=== PATIENT | male | born 1935 | race Caucasian/White ===

== ENCOUNTER 2021-08-15 13:58 | Observation (INO) | payer OTHER ==
[2021-08-15] MEDS ORDERED: Labetalol HCl 100 MG/20 ML VIAL ONE (14:22)
[2021-08-15 14:33] LABS: #Basophils 0.1 10x3/uL (0.0-0.2); #Eosinphils 0.2 10x3/uL (0.0-0.5); #Monocytes 0.6 10x3/uL (0.0-1.1); #Neutrophils 5.3 10x3/uL (1.5-8.4); %Basophils 0.8 % (0.0-2.0); %Eosinophils 2.6 % (0.0-6.0); %Lymphocytes 14.9 % (18.0-47.0); %Monocytes 8.4 % (0.0-10.0); Hemoglobin 14.6 g/dL (13.5-17.5); Mean Corpuscular HGB CONC 32.9 g/dL (32.0-36.0); Mean Corpuscular Hemoglobin 30.9 pg (27.0-33.0); Mean Corpuscular Volume 94.1 fl (81.2-95.1); Mean Platelet Volume 10.7 fl (7.4-10.4); Platelet Count 152 10x3/uL (150-450); RBC Distribution Width 12.7 % (11.5-14.5); Red Blood Cell (RBC) Count 4.72 10x6/uL (4.32-5.72); White Blood Cell (WBC) Count 7.2 10x3/uL (3.5-10.5)
[2021-08-15] MEDS ORDERED: hydrALAZINE 20 MG/ML VIAL ONE (14:39)
[2021-08-15 14:47] LABS: ALT (SGPT) 11 U/L (8-55); AST (SGOT) 18 U/L (5-34); Albumin 4.3 g/dL (3.4-4.8); Alkaline Phosphatase 135 U/L (40-110); Anion Gap 17 mmol/L (10-20); BUN (Urea Nitrogen) 31 mg/dL (8.4-25.7); Bilirubin, Total 0.7 mg/dL (0.2-1.2); Calc. Creatinine Clearance 0 mL/min (70-130); Carbon Dioxide 24 mmol/L (23-31); Chloride 103 mmol/L (98-107); Glucose 93 mg/dL (83-110); Lipase 27 U/L (8-78); Potassium 4.6 mmol/L (3.5-5.1); Protein, Total 7.3 g/dL (5.8-8.1); Sodium 139 mmol/L (136-145)
[2021-08-15] MEDS ORDERED: Aspirin Chewable 81 MG TAB ONE (15:15)
[2021-08-15] MEDS ORDERED: Nitroglycerin 2% Ointment 1 INCH/1 GM Packet ONE (22:30)
[2021-08-15 23:08] LABS: Troponin I 0.025 ng/mL (< 0.028)
[2021-08-15 23:36] VITALS: BMI 22.2
[2021-08-15 23:53] LABS: SARS-CoV-2 NAA Rapid Test Not Detected (NotDetected)
[2021-08-16] MEDS ORDERED: Nitroglycerin 0.4 MG TAB (25 Tab Bottle) SL PRN (01:51)
[2021-08-16] MEDS ORDERED: Acetaminophen 325 MG TAB PO PRN (01:57)
[2021-08-16 05:23] LABS: #Basophils 0.1 10x3/uL (0.0-0.2); #Eosinphils 0.2 10x3/uL (0.0-0.5); #Monocytes 0.6 10x3/uL (0.0-1.1); #Neutrophils 5.7 10x3/uL (1.5-8.4); %Basophils 0.7 % (0.0-2.0); %Eosinophils 2.8 % (0.0-6.0); %Lymphocytes 11.7 % (18.0-47.0); %Monocytes 8.4 % (0.0-10.0); %Neutrophils 75.9 % (40.0-75.0); Hemoglobin 12.7 g/dL (13.5-17.5); Mean Corpuscular HGB CONC 33.1 g/dL (32.0-36.0); Mean Corpuscular Hemoglobin 31.4 pg (27.0-33.0); Mean Platelet Volume 10.5 fl (7.4-10.4); Platelet Count 138 10x3/uL (150-450); RBC Distribution Width 12.6 % (11.5-14.5); Red Blood Cell (RBC) Count 4.04 10x6/uL (4.32-5.72); White Blood Cell (WBC) Count 7.5 10x3/uL (3.5-10.5)
[2021-08-16 05:36] LABS: Anion Gap 12 mmol/L (10-20); BUN (Urea Nitrogen) 25 mg/dL (8.4-25.7); Calc. Creatinine Clearance 46 mL/min (70-130); Calcium 8.2 mg/dL (7.8-10.44); Carbon Dioxide 20 mmol/L (23-31); Cardiac Risk 3.4 (Less than 4.5); Chloride 110 mmol/L (98-107); Cholesterol 110 mg/dl (< 200 Desired); Glucose 93 mg/dL (83-110); HDL Cholesterol 32 mg/dL (>60 Neg Risk); LDL Cholesterol, Calculated 64 mg/dL; Magnesium 1.9 mg/dL (1.6-2.6); Potassium 4.1 mmol/L (3.5-5.1); Sodium 138 mmol/L (136-145); Triglycerides 70 mg/dL (Less than 150)
[2021-08-16 05:38] LABS: Troponin I 0.011 ng/mL (< 0.028)
[2021-08-16] MEDS: Nitroglycerin 2% Ointment 1 INCH/1 GM Packet TOP SCH ×3 (05:39→20:16)
[2021-08-16] MEDS: Enoxaparin Sodium 40 MG/0.4 ML SYRINGE SC SCH (08:53)
[2021-08-16] MEDS: Furosemide 40 MG TAB PO SCH ×2 (08:54→20:16)
[2021-08-16] MEDS: Atorvastatin Calcium 20 MG TAB PO SCH (08:54)
[2021-08-16] MEDS ORDERED: Metoprolol Tartrate 25 MG TAB PO SCH (09:00)
[2021-08-16] MEDS ORDERED: Lisinopril 10 MG TAB PO SCH (09:00)
[2021-08-16] MEDS ORDERED: Aspirin 81 mg Enteric Coated Tablet PO SCH (09:00)
[2021-08-16 09:39] LABS: Troponin I 0.017 ng/mL (< 0.028)
[2021-08-16] MEDS ORDERED: Pantoprazole 40 MG GRANULES PACKET PO SCH (14:00)
[2021-08-16] MEDS: Simethicone Chewable 80 MG TAB PO SCH ×2 (14:39→20:24)
[2021-08-16] MEDS: Carvedilol 6.25 MG TAB PO SCH (18:11)
[2021-08-16] MEDS ORDERED: Sodium Chloride 0.9% 500 ML IVPB SCH (20:45)
[2021-08-16] MEDS ORDERED: Sodium Chloride 0.9% 1,000 ML IV SCH (22:00)
[2021-08-17] MEDS: Aspirin Chewable 81 MG TAB PO SCH (08:30)
[2021-08-17] MEDS: Pantoprazole 40 MG GRANULES PACKET PO SCH (08:30)
[2021-08-17] MEDS: Carvedilol 6.25 MG TAB PO SCH ×2 (08:30→15:56)
[2021-08-17] MEDS: Enoxaparin Sodium 40 MG/0.4 ML SYRINGE SC SCH (08:30)
[2021-08-17] MEDS: Atorvastatin Calcium 20 MG TAB PO SCH (08:30)
[2021-08-17] MEDS: Lisinopril 5 MG TAB PO SCH (08:31)
[2021-08-17] MEDS: Simethicone Chewable 80 MG TAB PO SCH ×3 (08:31→20:32)
[2021-08-17] MEDS: Nitroglycerin 0.4 MG TAB (25 Tab Bottle) SL PRN ×2 (17:12→17:53)
[2021-08-18 05:58] LABS: Anion Gap 10 mmol/L (10-20); BUN (Urea Nitrogen) 21 mg/dL (8.4-25.7); Calc. Creatinine Clearance 40 mL/min (70-130); Calcium 8.3 mg/dL (7.8-10.44); Carbon Dioxide 21 mmol/L (23-31); Chloride 112 mmol/L (98-107); Glucose 103 mg/dL (83-110); Magnesium 1.8 mg/dL (1.6-2.6); Potassium 4.3 mmol/L (3.5-5.1); Sodium 139 mmol/L (136-145)
[2021-08-18 08:42] VITALS: BP 133/66; TEMP 98.7
[2021-08-18] MEDS: Aspirin Chewable 81 MG TAB PO SCH (08:45)
[2021-08-18] MEDS: Carvedilol 6.25 MG TAB PO SCH (08:45)
[2021-08-18] MEDS: Atorvastatin Calcium 20 MG TAB PO SCH (08:45)
[2021-08-18] MEDS: Enoxaparin Sodium 40 MG/0.4 ML SYRINGE SC SCH (08:45)
[2021-08-18] MEDS: Lisinopril 5 MG TAB PO SCH (08:46)
[2021-08-18] MEDS: Simethicone Chewable 80 MG TAB PO SCH (08:56)
[2021-08-18] MEDS: Pantoprazole 40 MG GRANULES PACKET PO SCH (08:56)
== END 2021-08-18 13:45 | disposition home or self-care (01) ==
LOC: CSHERS 13:58 → EEVIPCON 13:58 → CSHTELE 13:59 → UNDOADMIN 13:59 → INTOOBSV 08-16 01:50 → CSHTELE 08-16 01:50
PROVIDERS: ADMIT Family Medicine; ATTEND Internal Medicine
DX: R07.89 Other chest pain (principal); I25.10 Atherosclerotic heart disease of native coronary artery without angina pectoris; I73.9 Peripheral vascular disease, unspecified; I10 Essential (primary) hypertension; E78.5 Hyperlipidemia, unspecified; Z95.1 Presence of aortocoronary bypass graft; I35.1 Nonrheumatic aortic (valve) insufficiency; Z79.899 Other long term (current) drug therapy; Z79.82 Long term (current) use of aspirin; Z87.891 Personal history of nicotine dependence; R13.10 Dysphagia, unspecified; N17.9 Acute kidney failure, unspecified; Z20.822 Contact with and (suspected) exposure to COVID-19
CPT/HCPCS: 36415; 71045; 80048; 80053; 80061; 83690; 83735; 84484; 85025; 93005; 93010; 93306; 94760; 96372; 96374; G0378; J0360; J1650; J7030; J7050; U0002

== ENCOUNTER 2021-09-12 14:47 | Emergency (ER) | payer OTHER ==
[2021-09-12 16:00] LABS: #Basophils 0.1 10x3/uL (0.0-0.2); #Eosinphils 0.3 10x3/uL (0.0-0.5); #Monocytes 0.5 10x3/uL (0.0-1.1); #Neutrophils 4.3 10x3/uL (1.5-8.4); %Eosinophils 5.4 % (0.0-6.0); %Lymphocytes 16.1 % (18.0-47.0); %Monocytes 8.3 % (0.0-10.0); %Neutrophils 68.9 % (40.0-75.0); Hemoglobin 13.4 g/dL (13.5-17.5); Mean Corpuscular HGB CONC 32.9 g/dL (32.0-36.0); Mean Corpuscular Volume 94.2 fl (81.2-95.1); Mean Platelet Volume 10.6 fl (7.4-10.4); Platelet Count 156 10x3/uL (150-450); RBC Distribution Width 12.6 % (11.5-14.5); Red Blood Cell (RBC) Count 4.32 10x6/uL (4.32-5.72); White Blood Cell (WBC) Count 6.3 10x3/uL (3.5-10.5)
[2021-09-12 16:04] LABS: ALT (SGPT) 7 U/L (8-55); AST (SGOT) 15 U/L (5-34); Albumin 3.8 g/dL (3.4-4.8); Alkaline Phosphatase 135 U/L (40-110); Anion Gap 10 mmol/L (10-20); BUN (Urea Nitrogen) 21 mg/dL (8.4-25.7); Bilirubin, Total 0.5 mg/dL (0.2-1.2); Calc. Creatinine Clearance 0 mL/min (70-130); Calcium 8.7 mg/dL (7.8-10.44); Carbon Dioxide 25 mmol/L (23-31); Chloride 108 mmol/L (98-107); Globulin 2.9 g/dL (2.4-3.5); Glucose 144 mg/dL (83-110); Lipase 24 U/L (8-78); Potassium 4.5 mmol/L (3.5-5.1); Protein, Total 6.7 g/dL (5.8-8.1); Sodium 138 mmol/L (136-145)
[2021-09-12 19:02] LABS: Troponin I 0.014 ng/mL (< 0.028)
[2021-09-13 05:51] LABS: Troponin I Less than 0.010 ng/mL (< 0.028)
[2021-09-13] MEDS ORDERED: Aspirin Chewable 81 MG TAB ONE (08:09)
[2021-09-13] MEDS ORDERED: Lisinopril 10 MG TAB ONE (08:10)
[2021-09-13] MEDS ORDERED: Carvedilol 12.5 MG TAB ONE (08:11)
[2021-09-13] MEDS ORDERED: Atorvastatin Calcium 10 MG TAB ONE (08:11)
== END 2021-09-13 08:36 | disposition short-term general hospital (02) ==
LOC: CSHERS 14:47
DX: I77.4 Celiac artery compression syndrome (principal); R07.89 Other chest pain; I16.0 Hypertensive urgency; I25.10 Atherosclerotic heart disease of native coronary artery without angina pectoris
CPT/HCPCS: 36415; 71045; 71275; 74174; 80053; 83605; 83690; 83880; 84484; 85025; 93005

== ENCOUNTER 2023-04-09 05:12 | Inpatient (IN) | payer OTHER ==
[2023-04-09] MEDS ORDERED: Ondansetron PF 4 MG/2 ML Vial ONE (05:43)
[2023-04-09] MEDS ORDERED: Ketorolac Tromethamine 30 MG/ML VIAL ONE (05:43)
[2023-04-09 06:07] LABS: #Eosinphils 0.1 10x3/uL (0.0-0.5); #Monocytes 1.1 10x3/uL (0.0-1.1); #Neutrophils 16.3 10x3/uL (1.5-8.4); %Basophils 0.2 % (0.0-2.0); %Eosinophils 0.6 % (0.0-6.0); %Lymphocytes 3.5 % (18.0-47.0); %Monocytes 5.8 % (0.0-10.0); %Neutrophils 89.4 % (40.0-75.0); Hemoglobin 12.2 g/dL (13.5-17.5); Mean Corpuscular HGB CONC 33.7 g/dL (32.0-36.0); Mean Corpuscular Hemoglobin 32.1 pg (27.0-33.0); Mean Corpuscular Volume 95.3 fl (81.2-95.1); Platelet Count 144 10x3/uL (150-450); RBC Distribution Width 13.1 % (11.5-14.5); White Blood Cell (WBC) Count 18.2 10x3/uL (3.5-10.5)
[2023-04-09 06:20] LABS: ALT (SGPT) 10 U/L (8-55); AST (SGOT) 20 U/L (5-34); Albumin 4.1 g/dL (3.4-4.8); Alkaline Phosphatase 99 U/L (40-110); Anion Gap 16 mmol/L (10-20); BUN (Urea Nitrogen) 41 mg/dL (8.4-25.7); Bilirubin, Total 0.6 mg/dL (0.2-1.2); Calc. Creatinine Clearance 0 mL/min (70-130); Calcium 9.6 mg/dL (7.8-10.44); Carbon Dioxide 23 mmol/L (23-31); Chloride 99 mmol/L (98-107); Estimated GFR 27; Globulin 3.2 g/dL (2.4-3.5); Glucose 135 mg/dL (83-110); Lipase 24 U/L (8-78); Potassium 4.5 mmol/L (3.5-5.1); Protein, Total 7.3 g/dL (5.8-8.1); Sodium 133 mmol/L (136-145)
[2023-04-09 06:49] LABS: CKMB 3.1 ng/mL (0-6.6)
[2023-04-09] MEDS ORDERED: Benzocaine 20% Spray 60 ML CAN FS SCH (08:15)
[2023-04-09] MEDS ORDERED: Piperacillin/Tazobactam 4.5 GM VIAL ONE (10:13)
[2023-04-09] MEDS ORDERED: Fentanyl 250 MCG/5 ML VIAL ONE (10:17)
[2023-04-09] MEDS ORDERED: PROPOFOL 20 ML ONE ×2 (10:17→14:24)
[2023-04-09] MEDS ORDERED: Rocuronium Bromide 10 MG/ML (10ML VIAL) ONE (10:17)
[2023-04-09] MEDS ORDERED: Phenylephrine 40 MG/NS 250 ML 250 ML ONE (10:21)
[2023-04-09] MEDS ORDERED: Vasopressin 20 UNITS/ML VIAL ONE ×2 (11:47→11:49)
[2023-04-09] MEDS ORDERED: SUGAMMADEX SODIUM 200 MG/2 ML VIAL ONE (11:48)
[2023-04-09] MEDS ORDERED: EPINEPHrine 1 MG/10 ML Abboject SYRINGE ONE (11:49)
[2023-04-09] MEDS ORDERED: Albumin 5% 500 ML ONE (14:03)
[2023-04-09] MEDS ORDERED: Ipratropium/Albuterol 3 ML NEB NEB PRN (14:48)
[2023-04-09] MEDS ORDERED: hydrALAZINE 20 MG/ML VIAL SLOW IVP PRN (14:48)
[2023-04-09] MEDS ORDERED: Morphine 4 MG/ML VIAL SLOW IVP PRN (14:48)
[2023-04-09] MEDS ORDERED: TETANUS, DIPHTHERIA TOX,ADULT (TDVAX) 0.5 ML VIAL IM ONE (14:48)
[2023-04-09] MEDS ORDERED: Sodium Chloride 0.9% 1,000 ML IV SCH ×3 (15:00→19:45)
[2023-04-09] MEDS ORDERED: Fentanyl BOLUS 250 ML IVPB PRN (15:00)
[2023-04-09] MEDS ORDERED: DISCONTINUE PREVIOUS NARCOTIC PAIN MEDICATIONS AND BENZODIAZEPINES FS SCH (15:00)
[2023-04-09] MEDS ORDERED: Morphine 2 MG/ML VIAL SLOW IVP PRN (15:00)
[2023-04-09] MEDS ORDERED: FENTANYL 2,000MCG/100-0.9%NACL 100 ML IVPB SCH (15:00)
[2023-04-09] MEDS ORDERED: Lorazepam 2 MG/ML VIAL SLOW IVP PRN (15:00)
[2023-04-09] MEDS ORDERED: Propofol BOLUS 1,000 MG/100 ML VIAL IV PRN (15:00)
[2023-04-09] MEDS ORDERED: Ventilator Sedation Protocol 1 EACH FS PRN (15:00)
[2023-04-09 15:27] LABS: ALV-art Gradient 227.325 mmHg (0-20); Actual Bicarbonate (HCO3a) 19.9 mEq/L (22-28); Base Excess (BEa) -8.3 mEq/L (-2.0 to +3.0); CO2 Tension 53.5 mmHg (35.0-45.0); Calcium, Ionized (arterial) 1.09 mmol/L (1.12-1.30); Carboxyhemoglobin (COHb) 0.3 gm% (0.0-3.0); Hematocrit-ABG 32 % (42.0-52.0); Hemoglobin (Hb) 10.8 g/dL (14.0-18.0); O2 Tension (PaO2), arterial 276.2 mmHg (> 60.0); Potassium - ABG Lab 5.12 mmol/L (3.70-5.30); Puncture Site RBA; pH, Arterial 7.188 (7.35-7.45)
[2023-04-09] MEDS: Propofol 1,000 MG/100 ML VIAL IV PRN ×2 (15:35→22:28)
[2023-04-09 15:45] LABS: #Monocytes 0.1 10x3/uL (0.0-1.1); %Basophils 0.3 % (0.0-2.0); %Eosinophils 0.5 % (0.0-6.0); %Lymphocytes 4.8 % (18.0-47.0); %Neutrophils 92.1 % (40.0-75.0); Hemoglobin 9.4 g/dL (13.5-17.5); Mean Corpuscular HGB CONC 33.1 g/dL (32.0-36.0); Mean Corpuscular Hemoglobin 31.9 pg (27.0-33.0); Mean Corpuscular Volume 96.3 fl (81.2-95.1); Platelet Count 130 10x3/uL (150-450); RBC Distribution Width 12.9 % (11.5-14.5); Red Blood Cell (RBC) Count 2.95 10x6/uL (4.32-5.72); White Blood Cell (WBC) Count 6.5 10x3/uL (3.5-10.5)
[2023-04-09] MEDS ORDERED: Piperacillin/Tazobactam 3.375 GM in Sodium Chloride 0.9% 100 ML IVPB SCH (16:30)
[2023-04-09] MEDS ORDERED: Sodium Chloride 0.9% 500 ML IV SCH (17:15)
[2023-04-09] MEDS ORDERED: Albumin 25% 25 GM/100 ML BOT IVPB SCH (18:00)
[2023-04-09 18:17] VITALS: BMI 21.3
[2023-04-09 18:41] LABS: Actual Bicarbonate (HCO3v) 15.9 mEq/L (22-28); Calcium, Ionized (venous) 1.01 mmol/L (1.16-1.32); Chloride (VBG) 107 mmol/L (98-106); Hematocrit-VBG 27 % (42.0-52.0); Hemoglobin (Hb) 9.3 g/dL (12.6-17.4); Potassium (VBG) 4.58 mmol/L (3.70-5.30); Puncture Site Other Site; Sodium 132.9 mmol/L (133-146); pH (venous) 7.274 (7.32-7.43)
[2023-04-09] MEDS ORDERED: NOREPINEPHRINE 8 MG/250 ML-D5W 250 ML ONE (18:42)
[2023-04-09] MEDS ORDERED: NOREPINEPHRINE 8 MG/250 ML-D5W 250 ML IVPB SCH (18:45)
[2023-04-09 19:31] LABS: Lactic Acid 2.1 mmol/L (0.5-2.2)
[2023-04-09 19:36] LABS: ALT (SGPT) 7 U/L (8-55); AST (SGOT) 15 U/L (5-34); Albumin 2.9 g/dL (3.4-4.8); Alkaline Phosphatase 41 U/L (40-110); Anion Gap 14 mmol/L (10-20); BUN (Urea Nitrogen) 45 mg/dL (8.4-25.7); Bilirubin, Total 0.9 mg/dL (0.2-1.2); Calc. Creatinine Clearance 22 mL/min (70-130); Carbon Dioxide 17 mmol/L (23-31); Chloride 110 mmol/L (98-107); Estimated GFR 26; Globulin 1.3 g/dL (2.4-3.5); Glucose 107 mg/dL (83-110); Magnesium 1.3 mg/dL (1.6-2.6); Phosphorus 3.9 mg/dL (2.3-4.7); Potassium 4.7 mmol/L (3.5-5.1); Protein, Total 4.2 g/dL (5.8-8.1); Sodium 136 mmol/L (136-145)
[2023-04-09 20:27] VITALS: BP 105/59
[2023-04-09] MEDS ORDERED: Pantoprazole 40 MG VIAL IVP SCH (21:00)
[2023-04-09 22:10] LABS: MDiff Complete? YES; Mean Corpuscular HGB CONC 33.1 g/dL (32.0-36.0); Mean Corpuscular Hemoglobin 31.1 pg (27.0-33.0); Mean Corpuscular Volume 94.1 fl (81.2-95.1); Mean Platelet Volume 10.2 fl (7.4-10.4); Platelet Count 81 10x3/uL (150-450); Red Blood Cell (RBC) Count 2.89 10x6/uL (4.32-5.72); White Blood Cell (WBC) Count 5.3 10x3/uL (3.5-10.5)
[2023-04-09 22:45] LABS: Band 18 % (5-11); Lymphocytes 4 % (21-51); Metamyelocyte 18 % (0-0); Monocytes 2 % (0-10); Neutrophil 58 % (42-75); Platelet Adequacy Comment Appears Decreased
== END 2023-04-09 22:52 | disposition short-term general hospital (02) | DRG 329 ==
LOC: EEVIPCON 05:12 → CSHERS 05:12 → CSHIMCU 15:08
PROVIDERS: ADMIT Specialist; ATTEND Specialist
PROC: 0DNU0ZZ Release Omentum, Open Approach (ICD-10-PCS; principal; 2023-04-09)
PROC: 0DT80ZZ Resection of Small Intestine, Open Approach (ICD-10-PCS; 2023-04-09)
PROC: 0DTF0ZZ Resection of Right Large Intestine, Open Approach (ICD-10-PCS; 2023-04-09)
PROC: 02HV33Z Insertion of Infusion Device into Superior Vena Cava, Percutaneous Approach (ICD-10-PCS; 2023-04-09)
PROC: 5A1935Z Respiratory Ventilation, Less than 24 Consecutive Hours (ICD-10-PCS; 2023-04-09)
PROC: 0BH17EZ Insertion of Endotracheal Airway into Trachea, Via Natural or Artificial Opening (ICD-10-PCS; 2023-04-09)
PROC: 4A033R1 Measurement of Arterial Saturation, Peripheral, Percutaneous Approach (ICD-10-PCS; 2023-04-09)
PROC: 30233N1 Transfusion of Nonautologous Red Blood Cells into Peripheral Vein, Percutaneous Approach (ICD-10-PCS; 2023-04-09)
PROC: 30233J1 Transfusion of Nonautologous Serum Albumin into Peripheral Vein, Percutaneous Approach (ICD-10-PCS; 2023-04-09)
PROC: 3E033XZ Introduction of Vasopressor into Peripheral Vein, Percutaneous Approach (ICD-10-PCS; 2023-04-09)
DX: K56.2 Volvulus (principal); G93.41 Metabolic encephalopathy; J96.00 Acute respiratory failure, unspecified whether with hypoxia or hypercapnia; R57.1 Hypovolemic shock; N17.9 Acute kidney failure, unspecified; E87.20 Acidosis, unspecified; D62 Acute posthemorrhagic anemia; K56.609 Unspecified intestinal obstruction, unspecified as to partial versus complete obstruction; K44.9 Diaphragmatic hernia without obstruction or gangrene; I25.10 Atherosclerotic heart disease of native coronary artery without angina pectoris; M19.90 Unspecified osteoarthritis, unspecified site; Z95.1 Presence of aortocoronary bypass graft; Z95.5 Presence of coronary angioplasty implant and graft; Z98.890 Other specified postprocedural states
CPT/HCPCS: 36430; 36600; 71045; 74176; 80053; 82553; 82805; 83605; 83690; 83735; 84100; 84484; 85025; 86850; 86900; 86901; 88307; 90714; 93005; 94002; 94760; 96361; 96365; 96375; A4649; C1713; C9113; J0171; J1885; J2405; J2543; J2704; J3010; J3490; J7030; J7050; P9016; P9045; P9047